=== PATIENT | male | born 1985 | race Caucasian/White ===

== ENCOUNTER 2022-12-10 10:40 | Outpatient (CLI) | payer BC, SELFPAY ==
[2022-12-10 13:32] LABS: Albumin* 4.6 g/dL (3.3-5.0); Chloride* 102 mmol/L (96-114)
[2022-12-10 13:33] LABS: Potassium* 4.8 mmol/L (3.6-5.1); Sodium* 139 mmol/L (135-149)
[2022-12-10 13:35] LABS: Alkaline Phosphatase* 61 U/L (40-150); Aspartate Amino Transferase* 28 U/L (12-35); Bilirubin Total* 1.1 mg/dL (0.1-1.5); Blood Urea Nitrogen* 17 mg/dL (5-24); Carbon Dioxide* 31 mmol/L (20-32); Cholesterol* 161 mg/dL (90-199); Creatinine* 1.1 mg/dL (0.5-1.5); Estimated Glomerular Filt Rate 89 ml/min; Glucose* 96 mg/dL (60-115); Total Protein* 7.3 g/dL (6.0-8.3); Triglycerides* 49 mg/dL (40-149)
[2022-12-10 13:36] LABS: Alanine Aminotransferase* 21 U/L (4-50); HDL Cholesterol* 76 mg/dL (>=40); LDL Cholesterol Calculated 75 mg/dL (<100)
== END 2022-12-10 10:41 | disposition home or self-care (01) ==
PROVIDERS: PCP Physician Assistant Medical; Visit Provider Physician Assistant Medical
DX: Z00.00 Encounter for general adult medical examination without abnormal findings (principal); Z13.9 Encounter for screening, unspecified; Z13.6 Encounter for screening for cardiovascular disorders
CPT/HCPCS: 80053; 80061

== ENCOUNTER 2024-08-16 13:37 | Outpatient (CLI) | payer BC, SELFPAY ==
--- NOTE | 2024-08-31 12:28 | W.PM.SLEEP ---
Sleep Study Details Details Interpreting Provider: Darrel Date of Sleep Study: 08/16/24 Sleep Study Details: ? BMI:? [] ORDERING PROVIDER:? [] INDICATION:? [] ? SLEEP SUMMARY:? [] RESPIRATORY SUMMARY:? [] PERIODIC LIMB MOVEMENTS OF SLEEP:? [] CARDIAC:? [] IMPRESSION:? [] RECOMMENDATION: []
--- NOTE | 2024-08-31 12:28 | W.PM.SLEEP ---
Sleep Study Details Details Interpreting Provider: Luis Eduardo Date of Sleep Study: 08/16/24 Sleep Study Details: STUDY TYPE:? Home unattended ? BMI:? 25.8 ORDERING PROVIDER:Jane Rojo INDICATION:? Concerned about sleep apnea ? SLEEP SUMMARY:? 442 minutes monitored RESPIRATORY SUMMARY:? AHI 4.8 Low oxygen 89 0.1% of study oxygen less than 90% Snoring 90.8% PERIODIC LIMB MOVEMENTS OF SLEEP:? Not recorded CARDIAC:? Range 40-118, mean 52.6 IMPRESSION:? This study does not demonstrate clinically significant obstructive sleep apnea although it is very close with an AHI of 4.8. If sleep disorder strongly suspected recommend an in-lab study Bradycardia was also noted with a heart rate down to 40. Further cardiac evaluation may be indicated. RECOMMENDATION: See above impression
== END 2024-08-16 13:38 | disposition home or self-care (01) ==
LOC: SLEEP 13:38
PROVIDERS: PCP Physician Assistant Medical; Visit Provider Physician Assistant Medical
DX: G47.30 Sleep apnea, unspecified (principal); R06.83 Snoring
CPT/HCPCS: 95806

== ENCOUNTER 2024-10-16 16:53 | Emergency (ER) | payer BC, SELFPAY ==
[2024-10-16 16:58] VITALS: BP 134/87; PULSE 50; RESP 18; TEMP 36.1; O2SAT 100; BMI 25.8
[2024-10-16] MEDS: lidocaine HCL 2 % MULTIDOSE 20 ML VIAL INJECTION (17:13)
--- NOTE | 2024-10-16 17:41 | ED.GENADULT ---
HPI - General Adult General Chief complaint: Laceration/Wound Stated complaint: L thumb lac Time Seen by Provider: 10/16/24 16:54 History of Present Illness HPI narrative: Patient is a 38-year-old gentleman up-to-date on his tetanus shot who injured his left thumb on the table saw. The avulsed a good piece of skin off the palmar surface distal to the D I P but still has a flap present. He has no bony pain bleeding is minimal. No other injuries noted patient has full sensation. Related Data Previous Rx's ?Medication ?Instructions ?Recorded albuterol sulfate 90 mcg/actuation 2 inh inhalation Q6H PRN shortness 07/06/24 breath activated powder inhaler of breath or wheezing #1 ea (ProAir RespiClick) Allergies Allergy/AdvReac Type Severity Reaction Status Date / Time No Known Allergies Allergy Unknown Verified 09/21/24 15:19 Review of Systems Status of ROS: Reports: 10 or more systems reviewed and unremarkable except as noted in History and below PFS PFS Medical History Family history of cardiovascular disease ?Z82.49 - Family history of ischemic heart disease and other diseases of the circulatory system (ICD-10) Surgical History History of surgical procedure ?Z98.890 - Other specified postprocedural states (ICD-10) Family History Mother Myocardial infarction Father Myocardial infarction Family/Other Stroke Social History (Updated 07/06/24 @ 11:32 by Luisa Diaz ~ [facility]) Narrative: Daily consumption of alcohol- 3 drinks daily Nonsmoker What is your current living situation?: I presently have a place to live Problems where you live: no known problems In the past 12 months, utilities in danger of being shut off: no In the past 12 mos, have been you worried that your food would run out before you had money to buy more?: never true In the past 12 mos, the food you bought just didn't last and you didn't have money to buy more?: never true Smoking Status: Never smoker How often does anyone, including family, friends and others, physically hurt you: never How often does anyone, including family, friends and others, insult or talk down to you: never How often does anyone, including family, friends and others, threaten you with harm: never How often does anyone, including family, friends and others, scream or curse at you: never Exam Narrative: Exam Narrative: EXAM GENERAL: Patient appears comfortable and well. EYES: No scleral icterus. LYMPH: No supraclavicular or cervical lymphadenopathy. SKIN: Left laceration as described above left distal thumb. EXT: No dependent lower extremity pedal edema. PSYCH: Good eye contact, speech is not pressured. Const: Vital Signs, click to edit/add: Vital Signs - 24 hr 10/16/24 16:58 Temperature 97 F L Pulse Rate [Pulse Oximeter] 50 L Respiratory Rate 18 Blood Pressure [Ri ght Upper Arm] 134/87 Pulse Oximetry 100 Oxygen Delivery Me thod Room Air Course Course ED Course: After explaining the risks and benefits of the procedure in after having created a digital block with approximately 5 mL of 2% lidocaine without epinephrine I did soak the wound after which I explored the wound with blunt dissection. I then closed the defect with 5 interrupted 3-0 Ethilon sutures. The wound was dressed and a care was explained. Vital Signs Vital signs: Initial Vital Signs Temperature 97 F L 10/16/24 16:58 Temperature Source Temporal Artery Scan 10/16/24 16:58 Pulse Rate 50 L 10/16/24 16:58 Respiratory Rate 18 10/16/24 16:58 Blood Pressure 134/87 10/16/24 16:58 Blood Pressure Mean 102 10/16/24 16:58 Blood Pressure Position Sitting 10/16/24 16:58 Pulse Oximetry 100 10/16/24 16:58 Oxygen Delivery Method Room Air 10/16/24 16:58 Vital Signs Temperature 97 F L 10/16/24 16:58 Pulse Rate 50 L 10/16/24 16:58 Respiratory Rate 18 10/16/24 16:58 Blood Pressure 134/87 10/16/24 16:58 Pulse Oximetry 100 10/16/24 16:58 Oxygen Delivery Method Room Air 10/16/24 16:58 Temperature 97 F L 10/16/24 16:58 Pulse Rate 50 L 10/16/24 16:58 Respiratory Rate 18 10/16/24 16:58 Blood Pressure 134/87 10/16/24 16:58 Pulse Oximetry 100 10/16/24 16:58 Oxygen Delivery Method Room Air 10/16/24 16:58 Medications Administered Medications: Generic Name Dose Route Start Last Admin Trade Name Freq PRN Reason Stop Dose Admin Lidocaine HCl 20 ml 10/16/24 17:06 10/16/24 17:13 Lidocaine Hcl 2 % Multidose 20 Ml Vial INJECTION 10/16/24 17:07 20 ml ONCE ONE Administration Discharge Plan Discharge Clinical Impression: Laceration Patient Disposition: Home, Self-Care Condition: Stable Instructions: Laceration (ED) Additional Instructions: Keep the wound clean Keep covered and treated with Vaseline or bacitracin. Sutures out in approximately 10 days. Activity Level: No Restrictions Discharge Diet: Regular Prescriptions: No Action ProAir RespiClick 90 mcg/actuation aerosol powdr breath activated 2 inh inhalation Q6H PRN (Reason: shortness of breath or wheezing) Qty: 1 5RF Follow Up/Referrals: Elisha Rojo PA-C [Primary Care Provider] - Stand Alone Forms: [facility] Info Instructions
== END 2024-10-16 18:03 | disposition home or self-care (01) ==
PROVIDERS: Emergency Provider Internal Medicine; PCP Physician Assistant Medical
DX: S61.012A Laceration without foreign body of left thumb without damage to nail, initial encounter (principal); W31.2XXA Contact with powered woodworking and forming machines, initial encounter
CPT/HCPCS: 12001; 99283